=== PATIENT | male | born 1985 | race Caucasian/White ===

== ENCOUNTER 2016-09-13 09:16 | Emergency (ER) | payer MEDICARE, MEDICAID ==
[2016-09-13] MEDS ORDERED: ONDANSETRON 4 MG ODT TAB ONE (09:58)
== END 2016-09-13 10:15 | disposition home or self-care (01) ==
LOC: ED 09:16
DX: R11.2 Nausea with vomiting, unspecified (principal); F17.220 Nicotine dependence, chewing tobacco, uncomplicated
CPT/HCPCS: 99282; 99283; A9270